=== PATIENT | male | born 1950 | race Caucasian/White ===

== ENCOUNTER 2020-03-21 09:54 | Inpatient (IN) | payer MEDICARE, OTHER, SELFPAY ==
[2020-03-21] VITALS (10 sets, daily range): BP systolic 121–159; BP diastolic 64–75; PULSE 62–98; RESP 16–18; TEMP 37–38.1; O2SAT 96–99; BMI 24.0
[2020-03-21 10:32] LABS: Add Manual Diff / Slide Review NO; Basophils Absolute Auto 100 /uL (0-100); Basophils Percent Auto 0.6 % (0-2); Eosinophils Absolute Auto 0 /uL (0-450); Hematocrit 40.9 % (41-53); Hemoglobin 14.2 g/dL (13.5-17.5); Lymphocytes Absolute Auto 1100 /uL (1100-4500); Lymphocytes Percent Auto 5.1 % (25-40); Mean Corpuscular HGB Conc 34.7 % (30-36); Mean Corpuscular Volume 95.3 fL (80-100); Monocytes Absolute Auto 2000 /uL (0-900); Monocytes Percent Auto 9.1 % (3-14); Neutrophils Absolute Auto 18400 /uL (1500-7000); Neutrophils Percent Auto 85.2 % (50-75); Platelet Count 254 X10^3/uL (150-400); Red Blood Cell Count 4.29 X10^6/uL (4.5-5.9); Red Cell Distribution Width 13.4 % (11.6-14.8); White Blood Cell Count 21.5 X10^3/uL (4.5-11.0)
[2020-03-21 10:35] LABS: INR 1.4 (0.9-1.3); Prothrombin Time 15.6 SECONDS (10.1-12.7)
[2020-03-21 10:38] LABS: Alanine Aminotransferase 30 IU/L (<50); Albumin 4.6 g/dL (3.5-5.0); Albumin Globulin Ratio 1.4 (1.0-2.8); Alkaline Phosphatase 51 U/L (38-126); Aspartate Aminotransferase 27 IU/L (17-59); BUN Creatinine Ratio 15.1 (6-22); Bilirubin Total 1.7 mg/dL (0.2-1.3); Blood Urea Nitrogen 16 mg/dL (9-20); Calcium 9.5 mg/dL (8.4-10.2); Carbon Dioxide 27 mmol/L (22-32); Chloride 95 mmol/L (98-107); Estimated Glomerular Filt Rate > 60.0 mL/min (>60); Globulin 3.3 g/dL (1.7-4.1); Glucose 206 mg/dL (80-110); HEMOLYSIS < 15 (0-50); Lipase 36 U/L (23-300); PTT Partial Thromboplastin Tim 31 SECONDS (26.4-36.2); Potassium 3.7 mmol/L (3.4-5.1); Sodium 132 mmol/L (137-145); Total Protein 7.9 g/dL (6.3-8.2)
--- NOTE | 2020-03-21 10:39 | DI.CT.S_ITS ---
PROCEDURE: CT ABDOMEN PELVIS W CON INDICATIONS: fullness tenderness left upper quadrant TECHNIQUE: After the administration of intravenous contrast, 5 mm thick sections acquired from the diaphragm to the symphysis. 5 mm coronal and sagittal reformats were acquired. For radiation dose reduction, the following was used: automated exposure control, adjustment of mA and/or kV according to patient size. COMPARISON: None. FINDINGS: Image quality: Excellent. ABDOMEN: Lung bases: Lung bases are clear. Heart size is normal. Solid organs: Liver is normal in size and enhancement. Gallbladder appears normal. Biliary system is non dilated. Pancreas enhances normally. Spleen is normal in size and enhancement. No adrenal nodules. Kidneys demonstrate normal size and enhancement, without hydronephrosis. Peritoneum and bowel: Bowel loops demonstrate normal wall thickness and caliber. No free fluid or air. Nodes and vessels: No retroperitoneal or mesenteric adenopathy by size criteria. Aorta and inferior vena cava are normal in size. Miscellaneous: No ventral hernias. PELVIS: Genitourinary: Bladder wall thickness is normal. Miscellaneous: No inguinal hernias or adenopathy. The sigmoid colon appears elongated, at the proximal sigmoid colon shortly after its transition from the descending colon there is abnormal mural thickening and adjacent pericolonic edema in the setting of acute diverticulitis, with a prominently inflamed superior directed diverticulum containing stool measuring up to 3.2 cm in diameter. Bones: No suspicious bony lesions. No vertebral body compression fractures. IMPRESSION: Acute diverticulitis involving the proximal sigmoid colon which is elongated. No peridiverticular abscess is found. The diverticulum involved at the epicenter of inflammation is prominent in size measuring up to 3.2 cm diameter. Additional diverticulosis involves the sigmoid colon, without additional foci of acute diverticulitis. Dictated by: Suraj Bateman M.D. on 03/21/2020 at 11:03 Approved by: Suraj Bateman M.D. on 03/21/2020 at 11:12
--- NOTE | 2020-03-21 10:51 | ED.ABDPAIN ---
HPI - Abdominal Pain General Chief Complaint: Abdominal Pain Stated Complaint: Severe upper left side stomach pain Time Seen by Provider: 03/21/20 10:28 Source: patient Mode of arrival: Ambulatory Limitations: no limitations History of Present Illness HPI narrative: CC: Left upper quadrant abdominal pain. 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 The pain has gotten steadily in progressively worse until this morning his left upper quadrant hurt to touch chin press and it hurt more when he released the pain and pressure with peritoneal signs. He denies any fall or injury. He had a normal bowel movement this morning without diarrhea. He states that the pain at the present time is about 2 to 5/10 in intensity worse with movement which is about 7-6. It is a dull achy discomfort. He does not report require any pain medicine at this time. He denies a history of pancreatitis diverticulitis. He has been anorectic for the last few days with decreased appetite. He has had no significant nausea or vomiting. 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 Related Data Home Medications Medication Instructions Recorded Confirmed aspirin 81 mg PO DAILY 03/21/20 03/21/20 glimepiride 4 mg PO QAM 03/21/20 03/21/20 hydrochlorothiazide 25 mg PO QAM 03/21/20 03/21/20 levothyroxine 150 mcg PO DAILY 03/21/20 03/21/20 lisinopril 20 mg PO DAILY 03/21/20 03/21/20 metformin 1,000 mg PO BID 03/21/20 03/21/20 metoprolol tartrate 100 mg PO BID 03/21/20 03/21/20 Allergies Allergy/AdvReac Type Severity Reaction Status Date / Time No Known Drug Allergies Allergy Verified 03/21/20 10:02 Review of Systems Review of Systems Narrative: REVIEW OF SYSTEMS: CONSTITUTIONAL: He denies any fever chills but has had intermittent sweats. He denies any fall or injury. NEUROLOGICAL: He has had no headache numbness tingling paresthesias anesthesia is or paresis. EENT: He has had no change in vision or sore throat difficulty in swallowing. CARDIO-PULMONARY: He denies any significant chest pain palpitations dizziness shortness of breath or cough. HEMOTOLOGICAL: He has had no bleeding abnormalities or bruising GASTROINTESTINAL: He has had left upper quadrant abdominal pain with mild nausea no vomiting no diarrhea normal bowel movements without melena hematochezia. GENITAL URINARY: He has had no urinary symptoms. MUSCULOSKELETAL/ RHEUMATOLOGICAL: He denies any back pain. DERMATOLOGICAL: He has had no skin rash or hives. Patient History Medical History (Updated 03/21/20 @ 14:10 by Jeff Kwok MD) Diabetes (Acute) Hypertension (Acute) Hypothyroidism (acquired) (Acute) Family History (Updated 03/21/20 @ 14:12 by Jeff Kwok MD) Father No problems noted. Mother CVA (cerebrovascular accident) Social History household members: spouse Smoking Status: Never smoker Smoking Status: Never smoker alcohol intake frequency: a few times a week Substance Use Type: does not use Exam Narrative Exam Narrative: PHYSICAL EXAM: CONSTITUTIONAL: Awake, Alert, Oriented, Coherent, Cooperative in NAD. Does not appear toxic or ill. Very pleasant and cooperative. Declines any pain medicine. HEAD: AT/NC EENT: PERRL, FROM of eyes, no discharge, no nystagmus MOUTH:Oral mucosa is moist and pink, posterior pharynx is without erythema or exudate. NECK: Supple, no obvious JVD, Trachea is midline without stridor, no palpable LN. SPINE: Palpationof the cervical, Thoracic, Lumbar or Sacral spine reveals no gross deformity or tenderness. No CVA tenderness. THORAX: No deformity, retractions, chest wall tenderness. LUNGS: Clear, symmetrical breath sounds without respiratory distress. HEART: Normal heart tones, regular rhythm and rate without murmur. ABDOMEN: There is fullness and a questionable mass palpable in the left upper quadrant that is tender to palpation. The rest of his abdomen is soft nontender. Bowel sounds are present. LYMPHATIC: Questionable mass in the left upper quadrant may be his spleen. It could also be a loop of bowel. EXTREMITIES: No edema, deformity, tenderness or cyanosis. SKIN: No rash, bruising, petechiae or purpura. NEURO: Awake, alert, oriented, conversive, cranial nerves II-XII are symmetrical , moves all 4 extremities and is ambulatory. Initial Vital Signs Initial Vital Signs: Vital Signs Temperature 98.7 F 03/21/20 10:02 Pulse Rate 68 03/21/20 10:02 Respiratory Rate 16 03/21/20 10:02 Blood Pressure 137/70 03/21/20 10:02 Pulse Oximetry 98 03/21/20 10:02 Course Course Course Narrative: 1126: The patient's CT scan reveals that he has acute diverticulitis involving the sigmoid colon with a dilation of a diverticulum to 3.2 cm. There is no evidence of an abscess or perforation at this [place] [address]. He will be administered Flagyl and Cipro. Orders Ordered: Acetaminophen (Tylenol) 650 mg PO Q6HR PRN PRN Reason: Fever/Mild Pain (1-3) Aspirin (Aspirin Ec) 81 mg PO DAILY [facility] Dextrose (D50w) 25 gm IV PRN PRN; Protocol PRN Reason: Hypoglycemia Enoxaparin Sodium (Lovenox) 40 mg SUBCUT DAILY [facility] Hydrochlorothiazide (Hydrochlorothiazide) 25 mg PO DAILY [facility] Sodium Chloride (Normal Saline 0.9%) 1,000 mls @ 100 mls/hr IV CONT [facility] Last Admin: 03/22/20 06:37 Dose: 100 mls/hr Documented by: Infusion: 03/22/20 06:37 Dose: 100 mls/hr Documented by: Admin: 03/21/20 12:46 Dose: 100 mls/hr Documented by: RADHA Ciprofloxacin (Cipro) 400 mg in 200 mls @ 200 mls/hr IV Q12H [facility] Last Infusion: 03/22/20 01:45 Dose: 0 mls/hr Documented by: Admin: 03/22/20 00:39 Dose: 200 mls/hr Documented by: Infusion: 03/21/20 15:53 Dose: 200 mls/hr Documented by: Admin: 03/21/20 14:00 Dose: 200 mls/hr Documented by: RADHA Metronidazole (Flagyl) 500 mg in 100 mls @ 100 mls/hr IV Q8H [facility] Last Admin: 03/22/20 04:00 Dose: 100 mls/hr Documented by: Infusion: 03/21/20 21:52 Dose: 100 mls/hr Documented by: Admin: 03/21/20 20:52 Dose: 100 mls/hr Documented by: BIN Insulin Aspart (Novolog Flexpen) 0 unit SUBCUT ACHS [facility]; Protocol Last Admin: 03/21/20 20:46 Dose: Not Given Documented by: Admin: 03/21/20 16:45 Dose: 1 unit Documented by: BIN Cosigned by: DONYA Levothyroxine Sodium (Synthroid) 75 mcg PO 0600 [facility] Last Admin: 03/22/20 06:20 Dose: 75 mcg Documented by: THOMAS Lisinopril (Zestril) 20 mg PO DAILY [facility] Metformin HCl (Glucophage) 1,000 mg PO 0800,1700 [facility] Metoprolol Tartrate (Lopressor) 100 mg PO BID [facility] Last Admin: 03/21/20 20:53 Dose: 100 mg Documented by: BIN Morphine Sulfate (Morphine) 2 mg IV Q4HR PRN PRN Reason: Pain, Moderate (4-6) Naloxone HCl (Narcan) 0.2 mg IV Q2MIN PRN PRN Reason: Opiate Reversal Ondansetron HCl (Zofran) 4 mg IV Q4HR PRN PRN Reason: Nausea And Vomiting Discontinued Medications Sodium Chloride (Normal Saline 0.9%) 1,000 mls @ 1,000 mls/hr IV BOLUS ONE Stop: 03/21/20 11:40 Last Infusion: 03/21/20 12:08 Dose: 0 mls/hr Documented by: Admin: 03/21/20 11:01 Dose: 1,000 mls/hr Documented by: JEISON Ciprofloxacin (Cipro) 400 mg in 200 mls @ 200 mls/hr IV NOW [facility] Last Infusion: 03/21/20 15:43 Dose: 200 mls/hr Documented by: Admin: 03/21/20 12:47 Dose: 200 mls/hr Documented by: RADHA Metronidazole (Flagyl) 500 mg in 100 mls @ 100 mls/hr IV NOW ONE Stop: 03/21/20 12:27 Last Infusion: 03/21/20 12:29 Dose: 0 mls/hr Documented by: Admin: 03/21/20 12:01 Dose: 100 mls/hr Documented by: JEISON Ondansetron HCl (Zofran) 4 mg IV NOW ONE Stop: 03/21/20 10:44 Last Admin: 03/21/20 11:06 Dose: Not Given Documented by: JEISON Vital Signs Vital signs: Vital Signs - 8 hr 03/21/20 10:02 03/21/20 11:00 Temperature 98.7 F Pulse Rate 68 66 Respiratory Rate 16 18 Blood Pressure 137/70 Blood Pressure [Right Arm] 140/64 Pulse Oximetry 98 96 MDM - Abdominal Pain Medical Records Attestation: I reviewed the patient's medical records. Lab Data Attestation: I reviewed the patient's lab results. Result diagrams: 03/22/20 05:40 03/22/20 05:40 Labs: Lab Results 03/21/20 03/21/20 03/21/20 Range/Units 10:17 10:17 10:17 WBC 21.5 H (4.5-11.0) X10^3/uL RBC 4.29 L (4.5-5.9) X10^6/uL Hgb 14.2 (13.5-17.5) g/dL Hct 40.9 L (41-53) % MCV 95.3 (80-100) fL MCH 33.0 (26-34) PG MCHC 34.7 (30-36) % RDW 13.4 (11.6-14.8) % Plt Count 254 (150-400) X10^3/uL Neut % (Auto) 85.2 H (50-75) % Lymph % (Auto) 5.1 L (25-40) % [place] % (Auto) 9.1 (3-14) % Eos % (Auto) 0.0 L (2-4) % Baso % (Auto) 0.6 (0-2) % Neut # (Auto) 67515 H (3628-3303) /uL Lymph # (Auto) 1100 (5072-6801) /uL [place] # (Auto) 2000 H (0-900) /uL Eos # (Auto) 0 (0-450) /uL Baso # (Auto) 100 (0-100) /uL PT 15.6 H (10.1-12.7) SECONDS INR 1.4 H (0.9-1.3) APTT 31 (26.4-36.2) SECONDS Sodium 132 L (137-145) mmol/L Potassium 3.7 (3.4-5.1) mmol/L Chloride 95 L (98-107) mmol/L Carbon Dioxide 27 (22-32) mmol/L BUN 16 (9-20) mg/dL Creatinine 1.06 (0.66-1.25) mg/dL Estimated GFR > 60.0 (>60) mL/min BUN/Creatinine Ratio 15.1 (6-22) Glucose 206 H (80-110) mg/dL Lactate (0.7-2.1) mmol/L Calcium 9.5 (8.4-10.2) mg/dL Total Bilirubin 1.7 H (0.2-1.3) mg/dL Conjugated Bilirubin (0.0-0.3) md/dL AST 27 (17-59) IU/L ALT 30 (<50) IU/L Alkaline Phosphatase 51 (38-126) U/L Lactate Dehydrogenase (313-618) U/L Total Creatine Kinase (55-170) U/L CK-MB (CK-2) (<2.37) ng/mL CK-MB (CK-2) Rel Index (1.5-5.0) % Troponin I (0.01-0.034) ng/mL Total Protein 7.9 (6.3-8.2) g/dL Albumin 4.6 (3.5-5.0) g/dL Globulin 3.3 (1.7-4.1) g/dL Albumin/Globulin Ratio 1.4 (1.0-2.8) Lipase 36 (23-300) U/L 03/21/20 03/21/20 03/21/20 Range/Units 10:17 10:17 10:17 WBC (4.5-11.0) X10^3/uL RBC (4.5-5.9) X10^6/uL Hgb (13.5-17.5) g/dL Hct (41-53) % MCV (80-100) fL MCH (26-34) PG MCHC (30-36) % RDW (11.6-14.8) % Plt Count (150-400) X10^3/uL Neut % (Auto) (50-75) % Lymph % (Auto) (25-40) % [place] % (Auto) (3-14) % Eos % (Auto) (2-4) % Baso % (Auto) (0-2) % Neut # (Auto) (1428-5813) /uL Lymph # (Auto) (2575-5696) /uL [place] # (Auto) (0-900) /uL Eos # (Auto) (0-450) /uL Baso # (Auto) (0-100) /uL PT (10.1-12.7) SECONDS INR (0.9-1.3) APTT (26.4-36.2) SECONDS Sodium (137-145) mmol/L Potassium (3.4-5.1) mmol/L Chloride (98-107) mmol/L Carbon Dioxide (22-32) mmol/L BUN (9-20) mg/dL Creatinine (0.66-1.25) mg/dL Estimated GFR (>60) mL/min BUN/Creatinine Ratio (6-22) Glucose (80-110) mg/dL Lactate 1.6 (0.7-2.1) mmol/L Calcium (8.4-10.2) mg/dL Total Bilirubin (0.2-1.3) mg/dL Conjugated Bilirubin 0.0 (0.0-0.3) md/dL AST (17-59) IU/L ALT (<50) IU/L Alkaline Phosphatase (38-126) U/L Lactate Dehydrogenase 430 (313-618) U/L Total Creatine Kinase 184 H (55-170) U/L CK-MB (CK-2) 4.17 H (<2.37) ng/mL CK-MB (CK-2) Rel Index 2.3 (1.5-5.0) % Troponin I < 0.012 (0.01-0.034) ng/mL Total Protein (6.3-8.2) g/dL Albumin (3.5-5.0) g/dL Globulin (1.7-4.1) g/dL Albumin/Globulin Ratio (1.0-2.8) Lipase (23-300) U/L ECG Data Attestation: I personally reviewed and interpreted this ECG as follows: Interpretation: The patient's EKG obtained at 10:0 4:21 a.m. reveals a sinus rhythm with normal intervals. QRS is 94 milliseconds duration QTC is normal at 403 milliseconds left axis deviation. The patient has T-wave inversions in leads III AVF and V1 suggestive that the patient may have inferior wall ischemia age indeterminate. The patient has nonspecific ST segment depressions in leads V2 V3 V4 without any other acute diagnostic ST or T-wave changes. There are no changes suggestive of an acute infarct or injury pattern. Discharge Plan Departure Patient Disposition: Admitted As Inpatient Clinical Impression: Acute LUQ pain, Diverticulitis of sigmoid colon Discharge Date/Time: 03/21/20 12:36 Admit Date/Time: 03/21/20 11:54 Admit Provider: Jeff Kwok
[2020-03-21] MEDS: SODIUM CHLORIDE 0.9% 1,000 ML 1000 ML IV (11:01)
[2020-03-21 11:04] LABS: Creatine Kinase 184 U/L (55-170); Lactate (Lactic Acid) 1.6 mmol/L (0.7-2.1); Lactate Dehydrogenase 430 U/L (313-618)
[2020-03-21 11:19] LABS: CKMB % Relative Index 2.3 % (1.5-5.0); Creatine Kinase MB 4.17 ng/mL (<2.37)
[2020-03-21 11:29] LABS: Troponin I < 0.012 ng/mL (0.01-0.034)
[2020-03-21] MEDS: metroNIDAZOLE 500 MG/100 ML PIGGYBACK 100 MG IV ×2 (12:01→20:52)
[2020-03-21 12:23] LABS: Bacteria Urine None Seen; RBC Urine None Seen (0-5/HPF); WBC Urine None Seen (0-5/HPF)
[2020-03-21 12:25] LABS: Appearance Urine UA CLEAR; Bilirubin Urine UA NEGATIVE (NEGATIVE); Color Urine UA YELLOW; Glucose Urine UA TRACE g/dL (Negative); Ketones Urine UA NEGATIVE (NEGATIVE); Leukocyte Esterase Urine UA NEGATIVE (NEGATIVE); Nitrite Urine UA NEGATIVE (Negative); Occult Blood Urine UA NEGATIVE (Negative); Protein Urine UA NEGATIVE (Negative); Specific Gravity Urine UA <=1.005 (1.000-1.035); Urobilinogen Urine UA 0.2 E.U./dL (0.2)
[2020-03-21 12:35] LABS: Culture Indicated Urine Cult Not Indicated; Urine Comments Microscopic Normal
[2020-03-21] MEDS: SODIUM CHLORIDE 0.9% 1,000 ML 100 ML IV (12:46)
[2020-03-21] MEDS: CIPROFLOXACIN 400 MG/200 ML PIGGYBACK 200 MG IV ×2 (12:47→14:00)
--- NOTE | 2020-03-21 14:06 | P.HP_ITS ---
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 He states the pain is more noticeable when he is moving or walking. He denies fever, chills, nausea, vomiting, diarrhea, rectal bleed. His last colonoscopy was about 20 years ago. He has no history of abdominal surgeries. CT scan showed acute diverticulitis involving the proximal sigmoid colon without abscess. There is a prominent inflamed diverticulum measuring 3.2 cm diameter. Patient takes glimepiride 4 mg q.d., metformin 1000 mg b.i.d., HCTZ 25 mg q.d., lisinopril 20 mg q.d., levothyroxine half tab of 150 mcg q.d., metoprolol tartrate 100 mg b.i.d., aspirin 81 mg q.d.. Patient History Medical History (Updated 03/21/20 @ 14:10 by Jeff Kwok MD) Diabetes (Acute) Hypertension (Acute) Hypothyroidism (acquired) (Acute) Family & Social History Family History (Updated 03/21/20 @ 14:12 by Jeff Kwok MD) Father No problems noted. Mother CVA (cerebrovascular accident) Social History: household members spouse Prior Living Arrangements House Safety & Behavioral: Feels Safe in Current Yes Environment Been Physically Hurt or No Threatened By a Person Suicidal Ideation Description None Suicide Plan Description No Plan Tobacco & Substance use: Smoking Status Never smoker alcohol intake frequency a few times a week Substance Use Type does not use Meds Home Medications and Allergies Allergies Allergy/AdvReac Type Severity Reaction Status Date / Time No Known Drug Allergies Allergy Verified 03/21/20 10:02 Review of Systems Review of Systems ROS: Yes All systems reviewed with the patient and are negative except as otherwise documented Exam Vital Signs (past 8 hours): - 03/21/20 10:02 03/21/20 11:00 03/21/20 11:30 Temperature 98.7 F Pulse Rate 68 66 98 H Respiratory Rate 16 18 18 Blood Pressure 137/70 Blood Pressure [Right Arm] 140/64 145/69 H Pulse Oximetry 98 96 99 03/21/20 12:05 03/21/20 12:10 03/21/20 12:30 Temperature 98.6 F Pulse Rate 64 62 68 Respiratory Rate 16 16 17 Blood Pressure 141/70 H Blood Pressure [Right Arm] 159/68 H 159/68 H Pulse Oximetry 99 98 98 Oxygen Delivery Method Room Air Oxygen Flow Rate 0 Narrative Exam Narrative: GENERAL: This is an alert well-nourished, well-developed patient, in no apparent distress. HEAD: Atraumatic. Normocephalic. EYES: Extraocular muscles intact. NECK: Trachea midline. No lymphadenopathy. CARDIOVASCULAR: Regular rate and rhythm without murmurs, gallops, or rubs. RESPIRATORY: Clear to auscultation bilaterally. GASTROINTESTINAL: Abdomen mildly distended, bowel sounds present, soft, locali zed tenderness in left upper quadrant with rebound and slight guarding EXTREMITIES: No edema. NEUROLOGICAL: Alert, well oriented, speech is intact, normal bilateral upper and lower extremity strength SKIN: warm, dry, no rash Objective Labs Result Diagrams: 03/21/20 10:17 03/21/20 10:17 Labs: Laboratory Results - last 24 hr 03/21/20 03/21/20 03/21/20 10:17 10:17 10:17 WBC 21.5 H RBC 4.29 L Hgb 14.2 Hct 40.9 L MCV 95.3 MCH 33.0 MCHC 34.7 RDW 13.4 Plt Count 254 Neut % (Auto) 85.2 H Lymph % (Auto) 5.1 L [place] % (Auto) 9.1 Eos % (Auto) 0.0 L Baso % (Auto) 0.6 Neut # (Auto) 34794 H Lymph # (Auto) 1100 [place] # (Auto) 2000 H Eos # (Auto) 0 Baso # (Auto) 100 PT 15.6 H INR 1.4 H APTT 31 Sodium 132 L Potassium 3.7 Chloride 95 L Carbon Dioxide 27 BUN 16 Creatinine 1.06 Estimated GFR > 60.0 BUN/Creatinine Ratio 15.1 Glucose 206 H Lactate Calcium 9.5 Total Bilirubin 1.7 H AST 27 ALT 30 Alkaline Phosphatase 51 Lactate Dehydrogenase Total Creatine Kinase CK-MB (CK-2) CK-MB (CK-2) Rel Index Troponin I Total Protein 7.9 Albumin 4.6 Globulin 3.3 Albumin/Globulin Ratio 1.4 Lipase 36 Urine Color Urine Appearance Urine pH Ur Specific [place] Urine Protein Urine Glucose (UA) Urine Ketones Urine Occult Blood Urine Nitrate Urine Bilirubin Urine Urobilinogen Ur Leukocyte Esterase Urine RBC Urine WBC Urine Bacteria Ur Culture Indicated? Micro UA Comment 03/21/20 03/21/20 03/21/20 10:17 10:17 12:08 WBC RBC Hgb Hct MCV MCH MCHC RDW Plt Count Neut % (Auto) Lymph % (Auto) [place] % (Auto) Eos % (Auto) Baso % (Auto) Neut # (Auto) Lymph # (Auto) [place] # (Auto) Eos # (Auto) Baso # (Auto) PT INR APTT Sodium Potassium Chloride Carbon Dioxide BUN Creatinine Estimated GFR BUN/Creatinine Ratio Glucose Lactate 1.6 Calcium Total Bilirubin AST ALT Alkaline Phosphatase Lactate Dehydrogenase 430 Total Creatine Kinase 184 H CK-MB (CK-2) 4.17 H CK-MB (CK-2) Rel Index 2.3 Troponin I < 0.012 Total Protein Albumin Globulin Albumin/Globulin Ratio Lipase Urine Color Yellow Urine Appearance Clear Urine pH 7.0 Ur Specific [place] <=1.005 Urine Protein Negative Urine Glucose (UA) Trace H Urine Ketones Negative Urine Occult Blood Negative Urine Nitrate Negative Urine Bilirubin Negative Urine Urobilinogen 0.2 Ur Leukocyte Esterase Negative Urine RBC None seen Urine WBC None seen Urine Bacteria None seen Ur Culture Indicated? 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 1. Acute sigmoid diverticulitis, present on admission, active -CT scan showing focal sigmoid diverticulitis with a prominent 3.2 cm inflamed diverticulum, no abscess or perforation -WBC 21.5 with left shift -treat with bowel rest and antibiotics -Cipro 400 mg IV q.12 hours, metronidazole 500 mg IV q.8 hours -NS 100 cc/hour -NPO -morphine IV as needed moderate to severe pain, Tylenol p.o. for mild pain -recheck CBC and exam in a.m. 2. Type 2 diabetes, chronic, active -admit glucose 206 -check hemoglobin A1c and lipid panel -NovoLog low-dose sliding scale -hold metformin times 48 hours then resume home dose -hold glimepiride while NPO -continue aspirin 81 mg q.d. 3. Hypertension, chronic, active -BP normal to mildly elevated, stable -continue HCTZ 25 mg q.d. and lisinopril 20 mg q.d. 4. Hypothyroidism, active -continue levothyroxine 75 mcg q.d. -check TSH 5. Hyperbilirubinemia and elevated INR, present on admission, active -T bili 1.7, INR 1.4 with normal AST, ALT and alk-phos -etiology unclear, CT scan without fatty liver or other abnormalities in the liver, patient with very moderate ETOH use -add on conjugated bilirubin -recheck LFTs and INR in a.m. Patient has been self-monitoring medications and needs to establish with PCP. Admit status: Inpatient with expected greater than 2 midnight stay DVT prophylaxis: Enoxaparin Code status: Full code Quality VTE Deep Vein Thrombosis/Pulmonary Embolism Present on Admission: No
[2020-03-21] MEDS: INSULIN ASPART 100 UNIT/ML INSULN PEN SUBCUT (16:45)
[2020-03-21] MEDS: METOPROLOL IR 50 MG TABLET 100 MG PO (20:53)
[2020-03-22] VITALS (10 sets, daily range): BP systolic 128–141; BP diastolic 59–73; PULSE 69–73; RESP 16–18; TEMP 36.8–37.5; O2SAT 95–98
[2020-03-22] MEDS: CIPROFLOXACIN 400 MG/200 ML PIGGYBACK 200 MG IV ×2 (00:39→14:42)
--- NOTE | 2020-03-22 01:31 | PC.NURSE ---
Patient is alert and oriented. Breath sounds diminished at bases but CTA with RA sat of 97%. HRR. Denies nausea. BT present and abdomen is soft but distended and is tender in left UQ. States pain is 0/10 at rest and 3/10 with movement but declines pain medication. Voiding per urinal; denies dysuria or urgency but having frequency related to IVF infusing. Turning self in bed. Steady on feet and denies any recent falls. Fall risk score is moderate; reminded to call for assistance when getting out of bed and patient verbalizes understanding.
[2020-03-22] MEDS: metroNIDAZOLE 500 MG/100 ML PIGGYBACK 100 MG IV ×3 (04:00→19:25)
[2020-03-22 06:08] LABS: Add Manual Diff / Slide Review NO; Basophils Absolute Auto 0 /uL (0-100); Basophils Percent Auto 0.1 % (0-2); Eosinophils Absolute Auto 0 /uL (0-450); Eosinophils Percent Auto 0.3 % (2-4); Hematocrit 36.2 % (41-53); Hemoglobin 12.3 g/dL (13.5-17.5); Lymphocytes Absolute Auto 2200 /uL (1100-4500); Lymphocytes Percent Auto 14.2 % (25-40); Mean Corpuscular Hemoglobin 32.2 PG (26-34); Mean Corpuscular Volume 94.7 fL (80-100); Monocytes Absolute Auto 1500 /uL (0-900); Neutrophils Absolute Auto 11500 /uL (1500-7000); Neutrophils Percent Auto 75.4 % (50-75); Platelet Count 210 X10^3/uL (150-400); Red Blood Cell Count 3.82 X10^6/uL (4.5-5.9); Red Cell Distribution Width 13.3 % (11.6-14.8); White Blood Cell Count 15.3 X10^3/uL (4.5-11.0)
[2020-03-22 06:09] LABS: INR 1.5 (0.9-1.3); Prothrombin Time 17.2 SECONDS (10.1-12.7)
[2020-03-22 06:10] LABS: Cholesterol 117 mg/dL (140-199); HDL Cholesterol 48 mg/dL (40-60); LDL Cholesterol Calculated 60 mg/dL (<100); Triglycerides 47 mg/dL (35-150)
[2020-03-22 06:13] LABS: Hemoglobin A1C% w Est Avg Glu 7.1 % (4.0-6.0)
[2020-03-22 06:19] LABS: Alanine Aminotransferase 21 IU/L (<50); Albumin 3.7 g/dL (3.5-5.0); Albumin Globulin Ratio 1.3 (1.0-2.8); Alkaline Phosphatase 46 U/L (38-126); Aspartate Aminotransferase 20 IU/L (17-59); BUN Creatinine Ratio 17.7 (6-22); Bilirubin Total 1.1 mg/dL (0.2-1.3); Blood Urea Nitrogen 14 mg/dL (9-20); Calcium 8.6 mg/dL (8.4-10.2); Carbon Dioxide 27 mmol/L (22-32); Chloride 100 mmol/L (98-107); Estimated Glomerular Filt Rate > 60.0 mL/min (>60); Globulin 2.8 g/dL (1.7-4.1); Glucose 125 mg/dL (80-110); HEMOLYSIS < 15 (0-50); Potassium 3.5 mmol/L (3.4-5.1); Sodium 134 mmol/L (137-145); Total Protein 6.5 g/dL (6.3-8.2)
[2020-03-22] MEDS: LEVOTHYROXINE 75 MCG TABLET PO (06:20)
[2020-03-22] MEDS: SODIUM CHLORIDE 0.9% 1,000 ML 100 ML IV ×2 (06:37→19:25)
[2020-03-22 06:50] LABS: TSH w/ Reflex to FT4 1.16 uIU/mL (0.47-4.68)
[2020-03-22] MEDS: ENOXAPARIN 40 MG/0.4 ML SYRINGE SUBCUT (10:13)
[2020-03-22] MEDS: lisinopriL 20 MG TABLET PO (10:13)
[2020-03-22] MEDS: METOPROLOL IR 50 MG TABLET 100 MG PO ×2 (10:14→20:02)
[2020-03-22] MEDS: ASPIRIN EC 81 MG TABLET PO (10:14)
[2020-03-22] MEDS: hydroCHLOROthiazide 25 MG TABLET PO (10:14)
--- NOTE | 2020-03-22 11:30 | CM.IDA ---
Initial DCP Assessment Note: Patient is a 69 yo male, resident of [place]. 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 PCP: No PCP at this time Payer: [employer] Met w/patient and explained role. Patient is active and indp. at baseline and lives w/his spouse, who is a retired nurse, in [place] . Patient has three adult children. Patient does not expect to have any DCP needs but does admit he is concerned about the cost of this hospitalization since he has not been sick for most of his adult life and I have not had to use my current insurance ([employer]) yet. Observation vs inpatient status being reviewed today and will depend on medical POC and interventions required. Dr Morales expressed concern about this and states I should be an inpatient if I'm here for more than three nights. relayed above to UR OXANA Campos who is completing the Utilization Review today. P: DC likely home w/supportive family via pov when medically stable. SAM Post Discharge Planning/Care Management CM Discharge Assessment Start: 03/22/20 11:26 Freq: Status: Active Protocol: Document 03/22/20 11:26 HEYDI (Rec: 03/22/20 11:29 HEYDI [id number]) Discharge Planning Assessment Assigned Mathematical Scientist [facility] [place] DPOA/Assigned Designee Name Ericka Morales, spouse Contact Information [phone] Advance Directives? No Advance Directives on File No History Provided By Patient Prior Living Arrangements House Household Members spouse Type of transportation used prior to Drives own vehicle admit Independent with ADL's Yes Is patient alert and oriented? Yes Barriers to Discharge No Discharge Plan Home Transportation Arrangement Family Referrals Initiated None needed Review Status In Process
--- NOTE | 2020-03-22 11:44 | PM.PN.1 ---
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 Jose has noticed his abdomen is more distended today. He does not have abdominal pain if lying in bed at rest but develops localized left upper quadrant pain with bending, walking or palpation of abdomen. No nausea or vomiting. He is passing flatus. Exam Vital Signs (past 8 hours): - 03/22/20 05:20 03/22/20 05:25 03/22/20 07:45 Temperature 99.5 F 98.6 F Pulse Rate 71 73 Respiratory Rate 18 18 Blood Pressure 132/70 141/73 H Pulse Oximetry 96 96 97 Oxygen Delivery Method Room Air Oxygen Flow Rate 0 Narrative Exam Narrative: General: Alert, pleasant and cooperative in no acute distress Lungs: Breathing nonlabored, clear to auscultation Heart: Regular rhythm Abdomen: Appears moderately distended, bowel sounds clearly present, soft with localized tenderness and guarding in the left upper quadrant Extremities no edema Neurological: Sensorium intact Objective Labs Result Diagrams: 03/22/20 05:40 03/22/20 05:40 Labs: Laboratory Results - last 24 hr 03/21/20 03/21/20 03/21/20 10:17 10:17 12:08 WBC RBC Hgb Hct MCV MCH MCHC RDW Plt Count Neut % (Auto) Lymph % (Auto) [place] % (Auto) Eos % (Auto) Baso % (Auto) Neut # (Auto) Lymph # (Auto) [place] # (Auto) Eos # (Auto) Baso # (Auto) PT INR Sodium Potassium Chloride Carbon Dioxide BUN Creatinine Estimated GFR BUN/Creatinine Ratio Glucose Hemoglobin A1c Calcium Total Bilirubin Conjugated Bilirubin 0.0 AST ALT Alkaline Phosphatase Lactate Dehydrogenase 430 Total Creatine Kinase 184 H CK-MB (CK-2) 4.17 H CK-MB (CK-2) Rel Index 2.3 Troponin I < 0.012 Total Protein Albumin Globulin Albumin/Globulin Ratio Triglycerides Cholesterol LDL Cholesterol, Calc HDL Cholesterol TSH Urine Color Yellow Urine Appearance Clear Urine pH 7.0 Ur Specific [place] <=1.005 Urine Protein Negative Urine Glucose (UA) Trace H Urine Ketones Negative Urine Occult Blood Negative Urine Nitrate Negative Urine Bilirubin Negative Urine Urobilinogen 0.2 Ur Leukocyte Esterase Negative Urine RBC None seen Urine WBC None seen Urine Bacteria None seen Ur Culture Indicated? Cult not indicated Micro UA Comment Microscopic normal 03/22/20 03/22/20 03/22/20 05:40 05:40 05:40 WBC 15.3 H RBC 3.82 L Hgb 12.3 L Hct 36.2 L MCV 94.7 MCH 32.2 MCHC 34.0 RDW 13.3 Plt Count 210 Neut % (Auto) 75.4 H Lymph % (Auto) 14.2 L [place] % (Auto) 10.0 Eos % (Auto) 0.3 L Baso % (Auto) 0.1 Neut # (Auto) 07215 H Lymph # (Auto) 2200 [place] # (Auto) 1500 H Eos # (Auto) 0 Baso # (Auto) 0 PT 17.2 H INR 1.5 H Sodium 134 L Potassium 3.5 Chloride 100 Carbon Dioxide 27 BUN 14 Creatinine 0.79 Estimated GFR > 60.0 BUN/Creatinine Ratio 17.7 Glucose 125 H Hemoglobin A1c Calcium 8.6 Total Bilirubin 1.1 Conjugated Bilirubin AST 20 ALT 21 Alkaline Phosphatase 46 Lactate Dehydrogenase Total Creatine Kinase CK-MB (CK-2) CK-MB (CK-2) Rel Index Troponin I Total Protein 6.5 Albumin 3.7 Globulin 2.8 Albumin/Globulin Ratio 1.3 Triglycerides Cholesterol LDL Cholesterol, Calc HDL Cholesterol TSH Urine Color Urine Appearance Urine pH Ur Specific [place] Urine Protein Urine Glucose (UA) Urine Ketones Urine Occult Blood Urine Nitrate Urine Bilirubin Urine Urobilinogen Ur Leukocyte Esterase Urine RBC Urine WBC Urine Bacteria Ur Culture Indicated? Micro UA Comment 03/22/20 03/22/20 03/22/20 05:40 05:40 05:40 WBC RBC Hgb Hct MCV MCH MCHC RDW Plt Count Neut % (Auto) Lymph % (Auto) [place] % (Auto) Eos % (Auto) Baso % (Auto) Neut # (Auto) Lymph # (Auto) [place] # (Auto) Eos # (Auto) Baso # (Auto) PT INR Sodium Potassium Chloride Carbon Dioxide BUN Creatinine Estimated GFR BUN/Creatinine Ratio Glucose Hemoglobin A1c 7.1 H Calcium Total Bilirubin Conjugated Bilirubin AST ALT Alkaline Phosphatase Lactate Dehydrogenase Total Creatine Kinase CK-MB (CK-2) CK-MB (CK-2) Rel Index Troponin I Total Protein Albumin Globulin Albumin/Globulin Ratio Triglycerides 47 Cholesterol 117 L LDL Cholesterol, Calc 60 HDL Cholesterol 48 TSH 1.16 Urine Color Urine Appearance Urine pH Ur Specific [place] Urine Protein Urine Glucose (UA) Urine Ketones Urine Occult Blood Urine Nitrate Urine Bilirubin Urine Urobilinogen Ur Leukocyte Esterase Urine RBC Urine WBC Urine Bacteria Ur Culture Indicated? 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 1. Acute sigmoid diverticulitis, present on admission, active -CT scan showing focal sigmoid diverticulitis with a prominent 3.2 cm inflamed diverticulum, no abscess or perforation -current WBC 15.3 improving, WBC initial 21.5 with left shift -patient possibly developing an ileus and IM a little concern whether this large diverticulum could perforate -continue bowel rest and antibiotics -Cipro 400 mg IV q.12 hours, metronidazole 500 mg IV q.8 hours -NS 100 cc/hour -morphine IV as needed moderate to severe pain (has not needed), Tylenol p.o. for mild pain -recheck CBC in a.m. -touch base with surgery regarding management 2. Type 2 diabetes, chronic, active -admit glucose 206 but trending down, most recent glucose near 100 -hemoglobin A1c 7.1% indicating reasonably good control -NovoLog low-dose sliding scale -hold metformin times 48 hours then resume home dose once taking p.o. -hold glimepiride while NPO -continue aspirin 81 mg q.d. 3. Hypertension, chronic, active -BP normal range, stable -continue HCTZ 25 mg q.d. and lisinopril 20 mg q.d. 4. Hypothyroidism, active -TSH 1.16, continue current levothyroxine dose 5. Possible coagulopathy, active -elevated INR, 1.4 on admission, and 1.5 on repeat labs -patient without bleeding history and not on anticoagulant medication -ETOH use is very moderate, short glass of wine a few times a week -no obvious chronic liver disease -consider outpatient hematology consultation 5. Hyperbilirubinemia, present on admission, resolved -initial total bilirubin 1.7, all unconjugated, on repeat labs total bilirubin 1.1 which is normal -normal AST, ALT and alk-phos -CT scan without fatty liver or other abnormalities in the liver Patient has been self-monitoring medications and needs to establish with PCP. Admit status: Inpatient with expected greater than 2 midnight stay DVT prophylaxis: Enoxaparin Code status: Full code Quality VTE Deep Vein Thrombosis/Pulmonary Embolism Present on Admission: No
[2020-03-23] MEDS: CIPROFLOXACIN 400 MG/200 ML PIGGYBACK 200 MG IV (00:47)
[2020-03-23 01:00] VITALS: BP 143/77; PULSE 69; RESP 16; TEMP 37.3; O2SAT 97
--- NOTE | 2020-03-23 01:03 | PC.NURSE ---
Patient is alert and oriented. Breath sounds diminished but CTA with RA sat of 97%. HRR. BP trends to run 130-140's systolic with current BP of 143/77. Denies nausea. rough rice tender in left UQ of abdomen with movement or palpation. BT present and is passing flatus; abdomen remains distended but soft. Is voiding using urinal and denies dysuria or urgency but complains of frequency related to IVF infusing. Is able to turn self. Gait not assessed as not out of bed but is reportedly independent; patient denies weakness or unsteadiness and states he has had no recent falls. Fall risk score is moderate.
[2020-03-23 04:30] VITALS: BP 130/78; PULSE 69; RESP 16; TEMP 36.1; O2SAT 98
[2020-03-23] MEDS: metroNIDAZOLE 500 MG/100 ML PIGGYBACK 100 MG IV (04:38)
[2020-03-23] MEDS: LEVOTHYROXINE 75 MCG TABLET PO (06:17)
[2020-03-23 07:30] VITALS: O2SAT 97
[2020-03-23 07:52] VITALS: BP 133/78; PULSE 67; RESP 16; TEMP 36.6; O2SAT 96
[2020-03-23 08:21] LABS: Add Manual Diff / Slide Review NO; Basophils Absolute Auto 0 /uL (0-100); Basophils Percent Auto 0.4 % (0-2); Eosinophils Absolute Auto 100 /uL (0-450); Eosinophils Percent Auto 0.9 % (2-4); Hematocrit 35.2 % (41-53); Hemoglobin 12.3 g/dL (13.5-17.5); Lymphocytes Absolute Auto 1600 /uL (1100-4500); Lymphocytes Percent Auto 14.8 % (25-40); Mean Corpuscular HGB Conc 34.9 % (30-36); Mean Corpuscular Hemoglobin 33.6 PG (26-34); Mean Corpuscular Volume 96.2 fL (80-100); Monocytes Absolute Auto 1000 /uL (0-900); Monocytes Percent Auto 8.9 % (3-14); Neutrophils Absolute Auto 8200 /uL (1500-7000); Platelet Count 227 X10^3/uL (150-400); Red Blood Cell Count 3.66 X10^6/uL (4.5-5.9); Red Cell Distribution Width 13.2 % (11.6-14.8)
[2020-03-23] MEDS: SODIUM CHLORIDE 0.9% 1,000 ML 100 ML IV (08:53)
[2020-03-23] MEDS: ASPIRIN EC 81 MG TABLET PO (08:54)
[2020-03-23] MEDS: hydroCHLOROthiazide 25 MG TABLET PO (08:54)
[2020-03-23] MEDS: INSULIN ASPART 100 UNIT/ML INSULN PEN SUBCUT (08:54)
[2020-03-23] MEDS: METOPROLOL IR 50 MG TABLET 100 MG PO (08:54)
[2020-03-23] MEDS: lisinopriL 20 MG TABLET PO (08:54)
[2020-03-23] MEDS: ENOXAPARIN 40 MG/0.4 ML SYRINGE SUBCUT (09:04)
--- NOTE | 2020-03-23 09:23 | DI.RAD.S_ITS ---
PROCEDURE: XR ABDOMEN MIN 2V INDICATIONS: abdominal distention TECHNIQUE: 2 views of the abdomen were acquired. COMPARISON: [facility], CT, CT ABDOMEN PELVIS W CON, 03/21/2020, 10:42. FINDINGS: Surgical changes and devices: None. Bowel: No pneumoperitoneum. The bowel gas pattern is nonspecific, with mild prominence of gas in the colon, and no small bowel distention. The appearance could be produced by air swallowing.. Soft tissues: No masses; visualized solid organ contours appear normal in size. No suspicious abdominal calcifications. Bones: No suspicious bony abnormalities. IMPRESSION: Nonspecific bowel gas pattern. No small bowel distention found. No free air identified beneath the diaphragms. Please also refer to prior CT scanning from 2 days ago identifying left abdominal acute diverticulitis. Dictated by: Suraj Bateman M.D. on 03/23/2020 at 11:24 Approved by: Suraj Bateman M.D. on 03/23/2020 at 11:25
[2020-03-23 12:00] VITALS: BP 123/74; PULSE 63; RESP 16; TEMP 36.5; O2SAT 97
--- NOTE | 2020-03-23 13:33 | CM.DPNOTE ---
DC Note DC order in place today, patient eager to return home, list of [place] primary care providers was offered per patient's request. P: DC home w/supportive spouse via pov today, as expected, no further SW needs identified JW
--- NOTE | 2020-03-23 13:51 | PC.NURSE ---
Discharge: Pt feels ready to d/c home. Abd feels much better. Minimal tenderness. Seen by Dr. Kwok and given his instructions. Pt understands diet, is as tolerated, start with full liquids and advance. Full liquid is not nutritionally complete and if he has any problems or if pain returns he is to see md or come to ed if needed. Pt will do further work up for GI as an out patient. Reviewed d/c packet. Rx was esent. Questions answered.
--- NOTE | 2020-03-23 18:15 | P.DS_ITS ---
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 He states the pain is more noticeable when he is moving or walking. He denies fever, chills, nausea, vomiting, diarrhea, rectal bleed. His last colonoscopy was about 20 years ago. He has no history of abdominal surgeries. CT scan showed acute diverticulitis involving the proximal sigmoid colon without abscess. There is a prominent inflamed diverticulum measuring 3.2 cm diameter. Patient takes glimepiride 4 mg q.d., metformin 1000 mg b.i.d., HCTZ 25 mg q.d., lisinopril 20 mg q.d., levothyroxine half tab of 150 mcg q.d., metoprolol tartrate 100 mg b.i.d., aspirin 81 mg q.d.. Discharge Providers Provider Date of admission: 03/21/20 11:54 Discharge Date: 03/23/20 Discharge provider: Jeff Kwok MD Summary Hospital Course Discharge Diagnosis: 1. Acute sigmoid diverticulitis 2. Type 2 diabetes 3. Hypertension 4. Hypothyroidism Hospital Course: Patient's CT showed proximal sigmoid diverticulitis with focality around a large 3.2 cm diverticulum. he was treated with initial bowel rest, IV Cipro and metronidazole. He was then started on clear liquid diet prior to discharge. His left upper quadrant abdominal pain is essentially resolved. WBC is back down to normal. He had fairly normal bowel movement prior to discharge. We did notice his abdomen became more distended over the past couple of days. An abdominal x-ray showed air throughout the colon but no evidence of ileus or obstruction. Abdominal films radiology report indicated nonspecific gas pattern. He is being discharged to complete course of oral antibiotic therapy and advanced diet as tolerated. He is due for screening colonoscopy as well. Status at Discharge Cognitive/behavioral status at discharge: oriented Functional status at discharge: independent ambulation Time Spent with Patient Time spent: Greater than 30 minutes Exam Vital Signs (past 8 hours): - 03/23/20 12:00 Temperature 97.7 F Pulse Rate 63 Respiratory Rate 16 Blood Pressure 123/74 Pulse Oximetry 97 Oxygen Delivery Method Room Air Oxygen Flow Rate 0 Objective Labs Result Diagrams: 03/23/20 08:10 03/22/20 05:40 Labs: Laboratory Results - last 24 hr 03/23/20 08:10 WBC 11.0 RBC 3.66 L Hgb 12.3 L Hct 35.2 L MCV 96.2 MCH 33.6 MCHC 34.9 RDW 13.2 Plt Count 227 Neut % (Auto) 75.0 Lymph % (Auto) 14.8 L [place] % (Auto) 8.9 Eos % (Auto) 0.9 L Baso % (Auto) 0.4 Neut # (Auto) 8200 H Lymph # (Auto) 1600 [place] # (Auto) 1000 H Eos # (Auto) 100 Baso # (Auto) 0 Discharge Plan Discharge Plan Patient Disposition: Home Discharge comment: Next dose of cipro and metronidazole are due around 6pm. Advance diet as tolerated. Schedule screening colonoscopy. Discharge orders & Medications Prescriptions: New ciprofloxacin HCl 500 mg tablet 500 mg PO BID Qty: 14 RF: 0 metronidazole 500 mg tablet 500 mg PO TID Qty: 21 RF: 0 Continued glimepiride 4 mg Tablet 4 mg PO QAM RF: 0 hydrochlorothiazide 25 mg PO QAM RF: 0 lisinopril 20 mg Tablet 20 mg PO DAILY RF: 0 levothyroxine 150 mcg Tablet 150 mcg PO DAILY RF: 0 metoprolol tartrate 100 mg Tablet 100 mg PO BID RF: 0 aspirin 81 mg Tablet,Delayed Release (Dr/Ec) 81 mg PO DAILY RF: 0 metformin 1,000 mg Tablet 1,000 mg PO BID RF: 0 Discharge Health Status Multidrug resistant organism: No MDRO Diet/Activity/Treatments Diet: Diet as Tolerated Visit Report/Discharge Packet Instructions: DI for Diverticulitis, Full Liquid Diet Discharges patient from system. Discharge Date/Time: 03/23/20 14:00 Quality VTE Deep Vein Thrombosis/Pulmonary Embolism Present on Admission: No
== END 2020-03-23 14:00 | disposition home or self-care (01) | DRG 392 ==
LOC: ED 11:53 → AC 11:54
PROVIDERS: Admitting Provider Internal Medicine; Emergency Provider Emergency Medicine; Referring Provider Emergency Medicine; Visit Provider Internal Medicine
DX: K57.32 Diverticulitis of large intestine without perforation or abscess without bleeding (principal); E80.6 Other disorders of bilirubin metabolism; E11.9 Type 2 diabetes mellitus without complications; I10 Essential (primary) hypertension; E03.9 Hypothyroidism, unspecified; Z79.4 Long term (current) use of insulin
CPT/HCPCS: 36415; 74019; 74177; 80053; 80061; 81001; 82248; 82550; 82553; 82962; 83036; 83605; 83615; 83690; 84443; 84484; 85025; 85610; 85730; 87040; 93005; 96361; 96365; 96375; 99285; 99406; J0744; J1650; Q9967

== ENCOUNTER → 2024-09-12 07:59 | Outpatient (CLI) | payer MEDICARE, OTHER, SELFPAY ==
[2020-03-21 12:51] VITALS: BMI 24.0
--- NOTE | 2024-09-12 08:01 | DI.ECHO.S_ITS ---
[facility] : : [address] : : [facility] : : [place], : : [place] [address] : : Phone: [phone] Echocardiogram Report + + :Name: DOUGLAS ARMSTRONG Study Date: 09/12/2024 Height: 72 in : :[facility] ReadingLocation: Weight: 165 lb : : Gender: Male BSA: 2.0 m2 : :: 1950 Age: 73 yrs BP: 161/85 mmHg: :Reason For Study: PALPITATIONS : :Ordering Physician: Fer POSADASformed By: Micheal Vieira : :Referring: SAHRA POSADAS : + + Interpretation Summary Normal left ventricle size with ejection fraction 55-60%. Mild aortic valve sclerosis. Procedure: A two-dimensional transthoracic echocardiogram with color flow and Doppler was performed. The study quality was technically good. There is no prior echocardiogram noted for this patient. The patient was in normal sinus rhythm during the exam. Left Ventricle: The left ventricle is normal in size. There is normal left ventricular wall thickness. There is no ventricular septal defect visualized. The ejection fraction is estimated to be 55-60%. There are no focal wall motion abnormalities. Diastolic parameters suggest a relaxation abnormality of the left ventricle, consistent with probable normal filling pressures. Right Ventricle: The right ventricle is normal in size and function. Atria: The left atrial size is normal. Right atrial size is normal. The atrial septum is aneurysmal. There is no Doppler evidence for an atrial septal defect. Mitral Valve: The mitral valve is normal in structure and function. There is no mitral regurgitation noted. Aortic Valve: The aortic valve is trileaflet. The aortic valve opens well. There is mild aortic valve sclerosis. There is trace aortic regurgitation. Tricuspid Valve: The tricuspid valve is normal in structure and function. There is trace tricuspid regurgitation. The right ventricular systolic pressure is estimated to be at least 33 mmHg based on an estimated right atrial pressure of 3 mm Hg. Pulmonic Valve: The pulmonic valve is normal in structure and function. There is trace pulmonic regurgitation. Great Vessels: The aortic root is normal size. The dimensions of the ascending aorta are normal. The pulmonary artery is normal size. The IVC is of normal diameter and collapses greater than 50% with a sniff. This suggests a low right atrial pressure of 3 mm Hg. Pericardium/ Pleura There is no pericardial effusion. There is no pleural effusion. MMode/2D Measurements & Calculations LVIDd: 4.9 cm AoV Openin.9 cm LVIDs: 3.4 cm LVOT diam: 2.0 cm IVSd: 0.78 cm Ao root diam: 3.5 cm LVPWd: 0.71 cm asc Aorta Diam: 3.3 cm LV peña. diameter/BSA (cm/m^2): 2.5 Ao Arch Diam (Prox Trans): 2.0 cm LV sys. diameter/BSA (cm/m^2): 1.7 FS: 29.9 % EPSS: 0.30 cm LA A2 area: 20.3 cm2 RA long axis: 5.3 cm LA A4 area: 15.0 cm2 RA area: 15.7 cm2 LA length (vol): 5.0 cm RA vol: 39.5 ml LA vol: 51.8 ml RA : 20.1 ml/m2 LA vol index: 26.4 ml/m2 RVD1 (basal): 3.7 cm IVC diam: 1.4 cm RVD2 (mid): 3.1 cm TAPSE: 2.4 cm Doppler Measurements & Calculations Ao V2 max: 151.5 cm/sec LVOT Max [place]: 129.8 cm/sec Ao V2 mean: 109.1 cm/sec LV V1 max P.7 mmHg Ao V2 VTI: 25.7 cm LV V1 VTI: 20.8 cm Ao max P.2 mmHg Ao mean P.3 mmHg TERE(I,D): 2.5 cm2 MV E max [place]: 65.3 cm/sec TERE(V,D): 2.6 cm2 MV A max [place]: 83.2 cm/sec TERE indexed to BSA (cm^2/m^2): 1.3 MV E/A: 0.79 sev ratio: 0.81 Med Peak E' [place]: 6.3 cm/sec E/E' med: 10.4 Lat Peak E' [place]: 5.8 cm/sec E/E' lat: 11.4 E/e' average: 10.9 MV dec time: 0.25 sec TR max [place]: 273.3 cm/sec TR max P.9 mmHg PA V2 max: 101.9 cm/sec SV(LVOT): 63.5 ml PA V2 mean: 68.6 cm/sec PA mean P.2 mmHg PA pr(Accel): 27.6 mmHg Electronically signed by: Hilaria Abdi on Reading Physician:09/12/2024 09:51 AM
== END ==
PROVIDERS: PCP Student in an Organized Health Care Education/Training Program; Referring Provider Internal Medicine Cardiovascular Disease; Visit Provider Internal Medicine Cardiovascular Disease
DX: I35.8 Other nonrheumatic aortic valve disorders (principal); I49.5 Sick sinus syndrome; R00.2 Palpitations; I10 Essential (primary) hypertension
CPT/HCPCS: 93306

== ENCOUNTER 2024-10-01 10:51 | Emergency (ER) | payer MEDICARE, OTHER, SELFPAY ==
[2020-03-21 12:51] VITALS: BMI 24.0
[2024-10-01] VITALS (13 sets, daily range): BP systolic 138–172; BP diastolic 69–86; PULSE 71–91; RESP 18; TEMP 36.7; O2SAT 93–100; BMI 21.8
--- NOTE | 2024-10-01 10:59 | ED.GENADULT ---
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 He has not had any surgical interventions in the area. The pain was significant enough that it woke him from sleep this morning. Had a regular colonoscopy with minor polyps appreciated about a year ago, normal bowel movement yesterday, he has otherwise been feeling well, he has not had previous symptoms. It does not describe nausea vomiting, chest pain, palpitations, fevers. Time of exam in the ER unless the areas directly palpated he has not having specific pain Related Data Home Medications Medication Instructions Recorded Confirmed aspirin 81 mg tablet,delayed 81 mg PO DAILY 03/21/20 01/12/23 release glimepiride 4 mg tablet 4 mg PO QAM 03/21/20 01/12/23 hydrochlorothiazide 25 mg PO QAM 03/21/20 01/12/23 levothyroxine 150 mcg tablet 150 mcg PO DAILY 03/21/20 01/12/23 lisinopril 20 mg tablet 20 mg PO DAILY 03/21/20 01/12/23 metformin 1,000 mg tablet 1,000 mg PO BID 03/21/20 01/12/23 metoprolol tartrate 100 mg tablet 100 mg PO BID 03/21/20 01/12/23 Previous Rx's Medication Instructions Recorded ciprofloxacin HCl 500 mg tablet 500 mg PO BID #14 tabs 03/23/20 metronidazole 500 mg tablet 500 mg PO TID #21 tabs 03/23/20 Allergies Allergy/AdvReac Type Severity Reaction Status Date / Time No Known Drug Allergies Allergy Verified 01/12/23 10:41 Review of Systems Constitutional Comments: Pertinent positive and negative findings as per HPI Patient History Medical History Hypothyroidism (acquired) Hypertension Diabetes Family History Father No problems noted. Mother CVA (cerebrovascular accident) Social History household members: spouse Smoking Status: Never smoker Smoking Status: Never smoker alcohol intake frequency: a few times a week Exam Initial Vital Signs Initial Vital Signs: Vital Signs Pulse Rate 89 10/01/24 10:58 Blood Pressure 172/86 H 10/01/24 10:58 Pulse Oximetry 99 10/01/24 10:58 General: Healthy appearing, in no acute distress. Able to give a complete and coherent history. Well-nourished well-developed HEENT: Moist mucous membranes, normal sclera with reactive pupils, Respiratory: Lungs are clear to auscultation, no wheezing no rales no rhonchi. Full and symmetrical air movement Cardiac: Regular rate and rhythm no murmurs no bruits Abdomen: Soft, there is an area in the lower left anterior wall with what does feel like a palpable defect and a 3 x 2 cm area of what does feel like an incarcerated hernia. Tender to direct touch, not mobile. No overlying erythema or warmth. Skin: Warm and dry, no rashes Neurologic: Grossly neurologically intact with no obvious asymmetries or abnormalities Extremities: No trauma, well perfused Psych: Cooperative, appropriate insight and affect Course Orders Ordered: ED Orders 10/01/24 11:09 CT abdomen pelvis w con Stat 10/01/24 11:20 Complete Blood Count AUTO DIFF Stat Comprehensive Metabolic Panel Stat Lactate (Lactic Acid) Stat Vital Signs Vital signs: Vital Signs - 8 hr 10/01/24 10:58 10/01/24 10:58 10/01/24 11:00 Temperature Pulse Rate 89 Respiratory Rate Blood Pressure 172/86 H 168/82 H Pulse Oximetry 99 Oxygen Delivery Method 10/01/24 11:00 10/01/24 11:01 Temperature 98.1 F Pulse Rate 91 H 85 Respiratory Rate 18 Blood Pressure 168/82 H Pulse Oximetry 100 98 Oxygen Delivery Method Room Air Medical Decision Making Lab Data 10/01/24 11:20 10/01/24 11:20 Labs: Lab Results 10/01/24 Range/Units 11:20 WBC 8.1 (4.5-11.0) X10^3/uL RBC 4.20 L (4.5-5.9) X10^6/uL Hgb 13.3 L (13.5-17.5) g/dL Hct 39.1 L (41-53) % MCV 93.3 (80-100) fL MCH 31.7 (26-34) PG MCHC 34.0 (30-36) % RDW 12.6 (11.6-14.8) % Plt Count 288 (150-400) X10^3/uL Neut % (Auto) 66.6 (50-75) % Lymph % (Auto) 25.6 (25-40) % [place] % (Auto) 6.4 (3-14) % Eos % (Auto) 1.0 L (2-4) % Baso % (Auto) 0.4 (0-2) % Neut # (Auto) 5400 (4530-6283) /uL Lymph # (Auto) 2100 (9194-8722) /uL [place] # (Auto) 500 (0-900) /uL Eos # (Auto) 100 (0-450) /uL Baso # (Auto) 0 (0-100) /uL Sodium 135 L (137-145) mmol/L Potassium 4.0 (3.4-5.1) mmol/L Chloride 103 (98-107) mmol/L Carbon Dioxide 27 (22-32) mmol/L BUN 21 H (9-20) mg/dL Creatinine 0.95 (0.66-1.25) mg/dL Estimated GFR > 60 (>60) mL/min BUN/Creatinine Ratio 22.1 H (6-22) Glucose 124 H (80-110) mg/dL Lactate 1.1 (0.7-2.1) mmol/L Calcium 9.7 (8.4-10.2) mg/dL Total Bilirubin 0.7 (0.2-1.3) mg/dL AST 33 (17-59) IU/L ALT 26 (<50) IU/L Alkaline Phosphatase 46 (38-126) U/L Total Protein 7.3 (6.3-8.2) g/dL Albumin 4.3 (3.5-5.0) g/dL Globulin 3.0 (1.7-4.1) g/dL Albumin/Globulin Ratio 1.4 (1.0-2.8) Imaging Data CT scan - abdomen/pelvis: Radiologist's Impression: PROCEDURE: CT ABDOMEN PELVIS W CON INDICATIONS: LLQ/L lower abdominal wall mass/pain TECHNIQUE: After the administration of intravenous contrast, axial sections acquired from the lung bases to the pubic symphysis. Coronal and sagittal reformats were performed. For radiation dose reduction, the following was used: automated exposure control, adjustment of mA and/or kV according to patient size. COMPARISON: [facility], CT, CT ABDOMEN PELVIS W CON, 03/21/2020, 10:42. FINDINGS: Lower thorax: The lung bases are clear. Heart size normal. No hiatal hernia. Liver: Normal in size and attenuation. No contour deformity present. Biliary system: No calcified cholelithiasis or pericholecystic inflammation. No intra or extrahepatic bile duct dilatation. Pancreas: Unremarkable without mass or inflammation evident. Spleen: Normal in size and density. Adrenals: Normal morphology and density. Reproductive system: Unremarkable as visualized. Urinary system: Normal renal size and attenuation. No renal calculi, hydronephrosis, or solid mass present. Urinary bladder unremarkable. Gastrointestinal system: Large fecal bolus in the rectum without bowel obstruction. Appendix: No findings to suggest acute appendicitis. Peritoneal spaces: No mesenteric or retroperitoneal adenopathy. No free air. No free fluid. Vasculature: The IVC, aorta and iliac vasculature are unremarkable. Abdominal wall: Left spigelian ventral hernia contains fat without bowel involvement, new from the prior, corresponds with site of pain. Musculoskeletal: Normal bone mineralization. Degenerative disc disease and arthropathy noted in lower lumbar spine. Severe central stenosis L4-5 and L3-4. No acute fractures. IMPRESSION: New left-sided spigelian ventral hernia contains fat, and associated with site of patient's pain. No bowel involvement. Large fecal bolus in the rectum without bowel obstruction. Approved by: Justin Price M.D. on 10/01/2024 at 12:02 [facility] Narrative Medical decision making narrative: CC: Left-sided abdominal wall pain Complicating co-morbidities: Hypertension, diabetes, hypothyroidism Data collected from: patient Medical records reviewed: Brief records from hospitalization secondary to diverticulitis reviewed Differential considered: Abdominal wall hernia, subcutaneous tissue mass, incarcerated hernia Exam documented above, pertinent findings include: Exam is relatively benign. The area in the lower abdomen is interesting, it is deeper, non mobile clearly an area of abnormality that is tender that is associated with the abdominal wall with no underlying defect palpable Lab Test results independently reviewed as above. Pertinent findings: CBC is reassuring Chemistries with no significant abnormalities Imaging studies independently reviewed: CT scan shows a abdominal wall (spigelian) hernia without any incarceration. Discussion: 73-year-old gentleman with increased abdominal pain that awoke him from sleep last night. No evidence of acute infection, need for hospitalization or antibiotics. He does not have any bowel incorporated in the CT diagnosed spigelian hernia. Findings reviewed with him with recommendations for outpatient surgical follow up. There was no indication for additional imaging or hospitalization. He declines any pain medication this time he is safe for discharge Discharge Plan Departure Patient Disposition: Home Clinical Impression: Spigelian hernia Activity Restrictions/Additional Instructions: Thank you for coming in today. Clearly, a very appropriate decision Your lab work was reassuring. CT scan shows a spigelian hernia with no bowel involved. I would recommend that you contact [facility] their phone number is [phone] explain that you are in the emergency department and need to be followed up for an abdominal wall hernia Using 400 mg of ibuprofen (2 [id number] pills) and 1 Tylenol every 6 hours can be very helpful in controlling pain. If you find that you are getting worse or develop any new symptoms, please feel free to return to the emergency department for further evaluation. From Up To Date: Spigelian hernia???A Spigelian hernia occurs through a defect in the Spigelian aponeurosis, which is the aponeurosis of the transverse abdominal muscle bounded by the linea semilunaris laterally and the lateral edge of the rectus muscle medially. The typical location is in the Spigelian hernia belt, a transverse 6-cm-wide zone around the level of the arcuate line.The arcuate line is the caudalmost extent of the posterior rectus sheath. As the hernia develops, preperitoneal fat emerges through the defect, bringing an extension of the peritoneum with it through the Spigelian fascia. The hernia is nevertheless covered by the intact external oblique aponeurosis. For this reason, almost all Spigelian hernias are interparietal in nature, and only rarely will the hernia sac lie in the subcutaneous tissues anterior to the external oblique fascia. A large Spigelian hernia is most often found lateral and inferior to its defect in the space directly posterior to the external oblique muscle; the hernia cannot develop medially due to the intact rectus muscle and sheath. The patient most often presents with a swelling in the mid to lower abdomen, just lateral to the rectus muscle. The patient may also complain of a sharp pain or tenderness at this site. Suspected Spigelian hernias can be diagnosed by abdominopelvic computed tomography (CT) or ultrasound Surgical repair is generally recommended once a Spigelian hernia is diagnosed. Surgery is usually performed under general anesthesia with either open or laparoscopic techniques. Prescriptions: No Action glimepiride 4 mg Tablet 4 mg PO QAM hydrochlorothiazide 25 mg PO QAM lisinopril 20 mg Tablet 20 mg PO DAILY levothyroxine 150 mcg Tablet 150 mcg PO DAILY Rx Instructions: Take 1/2 tab daily metoprolol tartrate 100 mg Tablet 100 mg PO BID aspirin 81 mg Tablet,Delayed Release (Dr/Ec) 81 mg PO DAILY metformin 1,000 mg Tablet 1,000 mg PO BID ciprofloxacin HCl 500 mg tablet 500 mg PO BID Qty: 14 0RF Rx Instructions: next dose at 6pm metronidazole 500 mg tablet 500 mg PO TID Qty: 21 0RF Rx Instructions: next dose at 6pm Referrals: Brayan Hernandez MD [Primary Care Provider] - Stand Alone Forms: Patient Portal/API/Survey
--- NOTE | 2024-10-01 11:09 | DI.CT.S_ITS ---
PROCEDURE: CT ABDOMEN PELVIS W CON INDICATIONS: LLQ/L lower abdominal wall mass/pain TECHNIQUE: After the administration of intravenous contrast, axial sections acquired from the lung bases to the pubic symphysis. Coronal and sagittal reformats were performed. For radiation dose reduction, the following was used: automated exposure control, adjustment of mA and/or kV according to patient size. COMPARISON: [facility], CT, CT ABDOMEN PELVIS W CON, 03/21/2020, 10:42. FINDINGS: Lower thorax: The lung bases are clear. Heart size normal. No hiatal hernia. Liver: Normal in size and attenuation. No contour deformity present. Biliary system: No calcified cholelithiasis or pericholecystic inflammation. No intra or extrahepatic bile duct dilatation. Pancreas: Unremarkable without mass or inflammation evident. Spleen: Normal in size and density. Adrenals: Normal morphology and density. Reproductive system: Unremarkable as visualized. Urinary system: Normal renal size and attenuation. No renal calculi, hydronephrosis, or solid mass present. Urinary bladder unremarkable. Gastrointestinal system: Large fecal bolus in the rectum without bowel obstruction. Appendix: No findings to suggest acute appendicitis. Peritoneal spaces: No mesenteric or retroperitoneal adenopathy. No free air. No free fluid. Vasculature: The IVC, aorta and iliac vasculature are unremarkable. Abdominal wall: Left spigelian ventral hernia contains fat without bowel involvement, new from the prior, corresponds with site of pain. Musculoskeletal: Normal bone mineralization. Degenerative disc disease and arthropathy noted in lower lumbar spine. Severe central stenosis L4-5 and L3-4. No acute fractures. IMPRESSION: New left-sided spigelian ventral hernia contains fat, and associated with site of patient's pain. No bowel involvement. Large fecal bolus in the rectum without bowel obstruction. Approved by: Justin Price M.D. on 10/01/2024 at 12:02
[2024-10-01 11:33] LABS: Add Manual Diff / Slide Review NO; Basophils Absolute Auto 0 /uL (0-100); Basophils Percent Auto 0.4 % (0-2); Eosinophils Absolute Auto 100 /uL (0-450); Hematocrit 39.1 % (41-53); Hemoglobin 13.3 g/dL (13.5-17.5); Lymphocytes Absolute Auto 2100 /uL (1100-4500); Lymphocytes Percent Auto 25.6 % (25-40); Mean Corpuscular Hemoglobin 31.7 PG (26-34); Mean Corpuscular Volume 93.3 fL (80-100); Monocytes Absolute Auto 500 /uL (0-900); Monocytes Percent Auto 6.4 % (3-14); Neutrophils Absolute Auto 5400 /uL (1500-7000); Neutrophils Percent Auto 66.6 % (50-75); Platelet Count 288 X10^3/uL (150-400); Red Cell Distribution Width 12.6 % (11.6-14.8); White Blood Cell Count 8.1 X10^3/uL (4.5-11.0)
[2024-10-01 11:43] LABS: Lactate (Lactic Acid) 1.1 mmol/L (0.7-2.1)
[2024-10-01 11:44] LABS: Alanine Aminotransferase 26 IU/L (<50); Albumin 4.3 g/dL (3.5-5.0); Albumin Globulin Ratio 1.4 (1.0-2.8); Alkaline Phosphatase 46 U/L (38-126); Aspartate Aminotransferase 33 IU/L (17-59); BUN Creatinine Ratio 22.1 (6-22); Bilirubin Total 0.7 mg/dL (0.2-1.3); Blood Urea Nitrogen 21 mg/dL (9-20); Calcium 9.7 mg/dL (8.4-10.2); Carbon Dioxide 27 mmol/L (22-32); Chloride 103 mmol/L (98-107); Estimated Glomerular Filt Rate > 60 mL/min (>60); Glucose 124 mg/dL (80-110); HEMOLYSIS < 15 (0-50); Sodium 135 mmol/L (137-145); Total Protein 7.3 g/dL (6.3-8.2)
== END 2024-10-01 13:19 | disposition home or self-care (01) ==
PROVIDERS: Emergency Provider Emergency Medicine; PCP Family Medicine
DX: K43.9 Ventral hernia without obstruction or gangrene (principal)
CPT/HCPCS: 36415; 74177; 80053; 83605; 85025; 99283; 99284; Q9967